=== PATIENT | female | born 1985 | race Caucasian/White ===

== ENCOUNTER → 2023-09-27 10:39 | Outpatient (BNVA) | payer BC, SELFPAY | PROVIDERS: PCP Obstetrics & Gynecology; Visit Provider Internal Medicine Rheumatology | DX: M25.559 Pain in unspecified hip (principal); M54.9 Dorsalgia, unspecified; Z79.899 Other long term (current) drug therapy; R76.8 Other specified abnormal immunological findings in serum | CPT/HCPCS: 36415; 72100; 72170; 80076; 82565; 85025; 85651; 86140; 86160; 86162; 86200; 86235; 86255; 86376 ==